=== PATIENT | female | born 1980 | race Caucasian/White ===

== ENCOUNTER 2023-04-23 20:01 | Emergency (ER) | payer SELFPAY ==
[~2023-04-23] VITALS: Ht 165.1 cm; Wt 54.9 kg
[2023-04-23] MEDS ORDERED: FIORICET 50-301 EACH PO (20:43)
[2023-04-23] MEDS ORDERED: NEURONTIN300 MG PO (20:44)
[2023-04-23 20:59] VITALS: BP 136/90; PULSE 93; RESP 18; TEMP 98.6; O2SAT 100
== END 2023-04-23 20:55 | disposition home or self-care (01) ==
LOC: FSED 20:21
DX: R51.9 Headache, unspecified (principal); F17.210 Nicotine dependence, cigarettes, uncomplicated
CPT/HCPCS: 99282